=== PATIENT | female | born 1990 | race Caucasian/White ===

== ENCOUNTER 2016-12-16 15:20 | Emergency (ER) | payer MEDICAID ==
[~2016-12-16] VITALS: Ht 157.5 cm; Wt 79.4 kg
[~2016-12-16 15:20] MED LIST: HYDR-2470; LORA10TA7
[2016-12-16 15:24] VITALS: BP_SYST 131
[2016-12-16] MEDS ORDERED: LORATADINE 10 MG TABLET PO ONE (15:45)
[2016-12-16 15:50] VITALS: BP_SYST 128
== END 2016-12-16 15:50 | disposition home or self-care (01) ==
LOC: SED 15:20
DX: S80.862A Insect bite (nonvenomous), left lower leg, initial encounter (principal); S80.861A Insect bite (nonvenomous), right lower leg, initial encounter; L03.116 Cellulitis of left lower limb; L03.115 Cellulitis of right lower limb; L03.818 Cellulitis of other sites; J45.909 Unspecified asthma, uncomplicated; W57.XXXA Bitten or stung by nonvenomous insect and other nonvenomous arthropods, initial encounter; Y93.89 Activity, other specified; Y92.89 Other specified places as the place of occurrence of the external cause; Y99.8 Other external cause status
CPT/HCPCS: 99283

== ENCOUNTER 2017-06-04 17:23 | Emergency (ER) | payer MEDICAID ==
[~2017-06-04] VITALS: Ht 157.5 cm; Wt 81.6 kg
[2017-06-04 17:28] VITALS: BP_SYST 120
--- NOTE | 2017-06-04 17:36 | NUR ---
Pt requesting to be check for flu
--- NOTE | 2017-06-04 18:39 | NUR ---
Ambulatory to chair 1
--- NOTE | 2017-06-04 18:45 | NUR ---
Pt complains of abdominal pain with nausea for the past couple days and just wants to be checked for the flu. A swab was taken to lab, waiting for results. No other injuries/complaints per pt or noted. Addendum: 06/04/17 at 1845 by CEDRIC Pt denies fever, vomiting and diarrhea.
--- NOTE | 2017-06-04 18:52 | NUR ---
MSE complete by Dr. Price
[2017-06-04 19:10] VITALS: BP_SYST 120
--- NOTE | 2017-06-04 19:10 | NUR ---
Patient does not wish to proceed with medical care recommended by Dr. Price. Patient given information related to possible complications, up to and including , which could occur as a result of leaving hospital at this time. Patient verbalizes understanding of risks involved leaving against medical advice. Patient has signed AMA form. Patient given written and verbal discharge instructions and verbalizes understanding. ER MD discussed with patient the results and treatment provided. Patient in stable condition. ID arm band removed. Rx of zofran, motrin given. Patient educated on pain management and to follow up with PMD. Pain Scale 2/10. Opportunity for questions provided and answered.
== END 2017-06-04 19:10 | disposition left against medical advice (07) ==
LOC: SED 17:23
DX: R10.13 Epigastric pain (principal); R11.0 Nausea; J45.909 Unspecified asthma, uncomplicated
CPT/HCPCS: 36415; 86710; 99284